=== PATIENT | female | born 1990 | race Two or more races ===

== ENCOUNTER 2022-09-09 09:04 | Emergency (ER) | payer BC ==
[~2022-09-09] VITALS: Ht 170.2 cm; Wt 70.0 kg
[2022-09-09 09:42] VITALS: BP 122/77
[2022-09-09] MEDS ORDERED: SILVER SULFADIAZINE 1 % TOPICAL CREAM 50GM TOP ONE (10:00)
[2022-09-09] MEDS ORDERED: IBUP-1456 PO (10:30)
[2022-09-09] MEDS ORDERED: CEPH500C PO (10:30)
== END 2022-09-09 10:39 | disposition home or self-care (01) ==
LOC: ER 09:04
DX: T23.171A Burn of first degree of right wrist, initial encounter (principal); T24.211A Burn of second degree of right thigh, initial encounter; X10.2XXA Contact with fats and cooking oils, initial encounter; Y93.89 Activity, other specified; Y92.89 Other specified places as the place of occurrence of the external cause; Y99.8 Other external cause status
CPT/HCPCS: 16000